=== PATIENT | female | born 2000 | race Caucasian/White ===

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

== ENCOUNTER 2018-11-06 21:16 | Emergency (ER) | payer SELFPAY ==
[~2018-11-06] VITALS: Ht 157.4 cm; Wt 54.4 kg
--- NOTE | ~2018-11-06 | EKG ---
[place], [place] ELECTROCARDIOGRAM REPORT NAME: MIKEY MURRELL UNIT #: [id number] ROOM: DOCTOR: EPIPHANY DRAFT REPORT BIRTHDATE: [birth year] [facility] Test Date: 2018-11-06 Test Time: 21:23:05 Pat Name: MIKEY MURRELL Department: ER Room: Gender: F Quality Auditor: : 2000 Requested By: MIRIAM BERG Order Number: [id number] Reading MD: Shai Love MD Measurements Intervals [place] Rate: 105 P: 84 NV: 155 QRS: 63 QRSD: 93 T: 25 QT: 335 QTc: 443 Interpretive Statements Sinus tachycardia Low voltage, extremity and precordial leads Electronically Signed On 11-07-2018 13:42:49 PDT by Shai Love MD CM:EKGRPT:ELECTROCARDIOGRAM REPORT 22 1342 MIRIAM BERG MD EPIPHANY DRAFT REPORT MIRIAM BERG MD
[~2018-11-06 21:16] MED LIST changes: +ZITHROMAX500 MG PO
[2018-11-06 21:17] VITALS: BP 149/102
[2018-11-06 21:41] LABS: BASO % 0.3 % (0.0-1.0); EOS # 0.3 10*3/uL (0.0-0.4); EOS % 3.4 % (1.0-4.0); HEMATOCRIT 41.4 % (37.0-47.0); HEMOGLOBIN 14.2 g/dl (12.0-16.0); LYMPH % 40.1 % (27.0-41.0); MEAN CELL VOLUME 84.7 fl (81.0-99.0); MEAN CORPUSCULAR HGB CONC 34.3 g/dl (33.0-37.0); MEAN PLATELET VOLUME 10.8 fl (9.6-12.3); MONO # 0.6 10*3/uL (0.1-1.0); MONO % 6.1 % (3.0-9.0); NEUT % 49.9 % (47.0-73.0); PLATELET COUNT AUTOMATED 286 10*3/uL (130-400); RED BLOOD COUNT 4.89 10*6/uL (4.10-5.10); RED CELL DISTRI WIDTH 12.2 % (0-14.5)
[2018-11-06 21:52] LABS: ACT PARTIAL THROMBO TIME 27.1 SECONDS (20.0-32.1); INTERNATIONAL NORM RATIO 0.9 (2.0-3.5)
[2018-11-06 21:59] LABS: ALBUMIN 3.7 gm/dl (3.1-4.5); ALKALINE PHOSPHATASE 62 U/L (45-117); BUN 5 mg/dl (7-24); CHLORIDE 106 mmol/L (98-107); CREATININE 0.84 mg/dL (0.55-1.02); POTASSIUM 3.1 mmol/L (3.5-5.1); SGOT/AST 14 IU/L (3-35); SGPT/ALT 18 U/L (12-78); SODIUM 141 mmol/L (136-145); TOTAL PROTEIN 7.1 gm/dL (6.4-8.2)
[2018-11-06 22:00] LABS: TROPONIN I < 0.015 ng/ml (<0.045)
[2018-11-07] MEDS ORDERED: PEPCID20 MG PO ×2 (00:46→01:00)
== END 2018-11-07 01:10 | disposition home or self-care (01) ==
LOC: ED 21:16
PROVIDERS: Emergency Medicine Emergency Medical Services
DX: K21.9 Gastro-esophageal reflux disease without esophagitis (principal); Z88.1 Allergy status to other antibiotic agents; Z88.5 Allergy status to narcotic agent; Z88.8 Allergy status to other drugs, medicaments and biological substances; Z79.899 Other long term (current) drug therapy; Z79.2 Long term (current) use of antibiotics